=== PATIENT | female | born 1995 | race Caucasian/White ===

== ENCOUNTER → 2017-05-29 11:29 | Outpatient (CLI) | payer BC, SELFPAY ==
[2017-05-29 12:01] LABS: Basophils % 0.1 % (0.1-2.0); Eosinophils # 0.1 K/mm3 (0.0-0.4); Eosinophils % 0.7 % (0.1-12.0); Hematocrit 39.8 % (37.0-47.0); Hemoglobin 12.7 g/dL (12.2-16.2); Lymphocytes # 1.7 K/mm3 (0.7-4.5); Lymphocytes % 26.7 K/mm3 (10-50); Mean Corpuscular HGB Conc 31.8 g/dL (31.8-35.4); Mean Corpuscular Hemoglobin 25.8 pg (27.0-31.2); Mean Corpuscular Volume 81.1 fl (81-99); Mean Platelet Volume 6.9 fl (7.4-10.4); Monocytes # 0.2 K/mm3 (0.1-1.0); Monocytes % 2.8 % (1.7-9.3); Neutrophils # 4.5 K/mm3 (1.8-7.8); Neutrophils % 69.7 % (37.0-80.0); Platelet Count 285 K/mm3 (142-424); Red Blood Count 4.91 M/mm3 (4.20-5.40); Red Cell Distribution Width 12.9 % (11.5-17.5); White Blood Count 6.4 K/mm3 (4.8-10.8)
[2017-05-30 08:21] LABS: HIV Screen 4th Generation wRfx Non Reactive (Non Reactive)
[2017-05-30 17:43] LABS: Hepatitis B Surface Antigen Negative (Negative); Hepatitis C Antibody 0.1 s/co ratio (0.0-0.9); Rapid Plasma Reagin Ab Titer Non Reactive (NonRea<1:1); Rubella Antibodies, IgG 1.19 index (Immune >0.99)
== END ==
PROVIDERS: Visit Provider Nurse Practitioner Obstetrics & Gynecology
DX: Z34.90 Encounter for supervision of normal pregnancy, unspecified, unspecified trimester (principal); Z3A.01 Less than 8 weeks gestation of pregnancy
CPT/HCPCS: 36415; 85025; 86592; 86703; 86762; 86850; 87340; 87380; G0432

== ENCOUNTER → 2017-06-02 13:45 | Outpatient (CLI) | payer BC, SELFPAY ==
--- NOTE | 2017-06-02 13:49 | US_ITS ---
US OB transvaginal HISTORY: Early gestational age evaluation ITS.REASON: US OB- Dates ORDERING PHYSICIAN: Arie Lawson MD PATIENT AGE: 22 years COMPARISON: FINDINGS: An intrauterine gestational sac is present with a pole with a crown-rump length of 6.00cm correlating to gestational age of 12w4d . heart tones are present with an FHR of Heart rate bpm's. Yolk sac is noted. The amnion and chorion have not yet fused. Estimated due date is 12/10/2017 IMPRESSION: Live intrauterine gestation at 12 weeks 4 days with an estimated due date of 12/10/2017.
== END ==
PROVIDERS: Family Provider Family Medicine; PCP Family Medicine; Visit Provider Nurse Practitioner Obstetrics & Gynecology
DX: O26.841 Uterine size-date discrepancy, first trimester (principal)
CPT/HCPCS: 76830

== ENCOUNTER → 2017-07-29 13:05 | Outpatient (CLI) | payer BC, SELFPAY ==
--- NOTE | 2017-07-29 13:08 | US_ITS ---
US OB /maternal detail: INDICATION: ITS.REASON: US OB Complete ORDERING PHYSICIAN: Arie Lawson MD PATIENT AGE: 22 years TECHNIQUE: ultrasound transabdominal scanning. COMPARISON: No previous relevant studies. FINDINGS: Single viable intrauterine gestation. , Cephalic position. Placenta: Anterior placenta grade 1. There is average amount fluid. The cervix appears satisfactory. Closed and measuring or centimeters in length. Complete survey performed and was unremarkable on the submitted images as in PACS. No discrete anomalies identified on survey imaging by technologist. Active fetus. Three-vessel cord with satisfactory umbilical cord insertion. 4- chamber heart noted. Survey of brain & ventricles unremarkable. Face and neck survey unremarkable. Diaphragm and chest views unremarkable. Abdomen: Both kidneys noted and unremarkable. Stomach noted and satisfactory. Spine: Survey of the spine satisfactory with no anomalies identified nor imaged. Both arms and legs noted. Amniotic Fluid: Adequate. Maternal adnexa: No significant findings. Measurements: Average ultrasound age 20w5d. Gestational Age 22w2d. Estimated due date by ultrasound age 1012/11/2017. Estimated weight 365 grams. This is 2nd percentile based on estimated due date BPD = 20w5d OFD = 21w0d HC = 20w1d AC = 20w4d FL = 21w0d Heart Rate = 146 Cerebellum = 21w3d Humerus = 21w3d HC/AC is 1.15 (1.06-1.25). CI is 77% (70-86%). FL/BPD is 71%. FL/AC is 23% (20-24%). IMPRESSION: Single live intrauterine gestation with average ultrasound age of 20 weeks and 5 days. Estimated weight is 365-g which is small for reported gestational age which is 2nd percentile based on estimated due date. Consider follow-up to confirm adequate growth. All parameters correlate. No obvious anomalies. Please see above for detail.
== END ==
PROVIDERS: Family Provider Family Medicine; PCP Family Medicine; Visit Provider Nurse Practitioner Obstetrics & Gynecology
DX: Z36.0 Encounter for antenatal screening for chromosomal anomalies (principal)
CPT/HCPCS: 76811

== ENCOUNTER → 2017-11-11 17:02 | Outpatient (REF) | payer BC, SELFPAY | LOC: LAB 17:02 | PROVIDERS: Visit Provider Nurse Practitioner Obstetrics & Gynecology | DX: Z34.90 Encounter for supervision of normal pregnancy, unspecified, unspecified trimester (principal) | CPT/HCPCS: 86403 ==

== ENCOUNTER → 2017-11-18 10:08 | Outpatient (CLI) | payer BC, SELFPAY ==
--- NOTE | 2017-11-18 | US_ITS ---
US OB biophysical profile, US OB follow up, US SD Ratio umbilcal artery: Indication: ITS.REASON: US OB BPP GROWTH- LGA ORDERING PHYSICIAN: Arie Lawson MD PATIENT AGE: 22 years FINDINGS: There is a single live fetus in cephalic presentation. heart and body motion noted. The following parameters are obtained: Average ultrasound age is 36w6d. Estimated due date by ultrasound is 12/10/2017. Estimated weight is 3043 grams Growth percentile equals 55% BPD: 36w2d OFD: OFD HC: 37w4d AC: 37w1d FL: 36w2d heart rate: 134 bpm. HC/AC: 0.99 (0.92-1.22) Cephalic index: 76% (70-86%) FL/BPD: 79% (71-87%) FL/AC: 21% (20-24%) Amniotic fluid index: 14 cm Qualitative AFV: 2 breathing movements: 2 Gross body movements: 2 Tone: 2 Biophysical profile score: 8/8 Doppler evaluation of the umbilical artery: SD ratio: 2.3 Resistive index: 0.56 No obvious anomalies evident. Placenta: Anterior and grade 2. No previa or abruption Cervix: Appears closed and measures 3.5 cm IMPRESSION: There is a single live fetus which is in cephalic presentation with an average ultrasound age of 36 weeks and 3 days. There has been adequate progression. Submitted weight is 3043 g which is 55 percentile. Biophysical profile is 8 of 8. Amniotic fluid index normal at 14 cm. Unremarkable Doppler evaluation of the umbilical artery Anterior grade 2 placenta
== END ==
PROVIDERS: Family Provider Family Medicine; PCP Family Medicine; Visit Provider Nurse Practitioner Obstetrics & Gynecology
DX: O36.63X0 Maternal care for excessive fetal growth, third trimester, not applicable or unspecified (principal)
CPT/HCPCS: 76816; 76819; 76820

== ENCOUNTER 2017-12-03 05:40 | Inpatient (IN) ==
[2017-12-03 06:37] LABS: Anion Gap 14.1 mEq/L (5-15); Calcium 8.6 mg/dL (8.5-10.1); Potassium 4.1 mmoL/L (3.5-5.1)
[2017-12-03 06:47] LABS: Eosinophils % 0.8 % (0.1-12.0); Hematocrit 34.9 % (37.0-47.0); Hemoglobin 11.5 g/dL (12.2-16.2); Mean Corpuscular HGB Conc 32.8 g/dL (31.8-35.4); Mean Corpuscular Hemoglobin 25.7 pg (27.0-31.2); Mean Corpuscular Volume 78.4 fl (81-99); Mean Platelet Volume 8.2 fl (7.4-10.4); Monocytes % 4.9 % (1.7-9.3); Neutrophils % 65.5 % (37.0-80.0); Platelet Count 210 K/mm3 (142-424); Red Blood Count 4.46 M/mm3 (4.20-5.40); Red Cell Distribution Width 14.6 % (11.5-17.5)
[2017-12-03 06:48] LABS: Basophils % 0.1 % (0.1-2.0); Lymphocytes % 28.7 K/mm3 (10-50); Neutrophils # 4.4 K/mm3 (1.8-7.8)
[2017-12-03 06:49] LABS: Eosinophils # 0.1 K/mm3 (0.0-0.4); Lymphocytes # 1.9 K/mm3 (0.7-4.5); Monocytes # 0.3 K/mm3 (0.1-1.0); White Blood Count 6.8 K/mm3 (4.8-10.8)
--- NOTE | 2017-12-03 08:12 | Operative Note ---
Date of procedure: 12/03/17 Pre-op Diagnosis:: Term , previous section Post-op Diagnosis:: Term , previous section Procedure performed:: Repeat lower segment for section. Surgeon:: Arie Lawson MD Home Administrator(s):: Miesha Thompson [employer]CH[employer]IC:: Other ([place]) Anesthesia: spinal Estimated blood loss (mL): 600 Clinical Note:: Is a 22-year-old 2 para 1 who is 39+ weeks gestational age. She has had a previous section and as a was offered repeat lower segment transverse section at term. Operative findings:: She delivered a liveborn female child at 7:40 AM on the morning of December 03 to be had Apgars of 9 at 1 minute and 9 at 5 minutes. Tubes and ovaries appeared normal. PH was 7.35. Operative note:: She was taken to the operating room where spinal anesthesia was found be adequate. She was prepped and draped in normal sterile fashion in the supine position with a leftward tilt. A Khan catheter was in the bladder. A Pfannenstiel skin incision was made with knife then carried through to the underlying layer of fascia with cautery. The fascia was opened in the midline with cautery and extended laterally using Silveira scissors. Benedict clamps were applied to the superior aspect of the fascial incision which was tented up and the underlying rectus muscles dissected off using cautery. The [place] clamps were then applied to the inferior aspect of the fascial incision which in a similar fashion was tented up and the underlying rectus muscles dissected off using cautery. The rectus muscles were then in the midline, the peritoneum identified, and entered sharply with Metzenbaum scissors. This incision was then extended superiorly and inferiorly with cautery. We had good visualization of the bladder inferiorly. The Kevin device was then placed within the abdominal cavity. The bladder peritoneum was then opened in the midline and extended laterally using Metzenbaum scissors. A bladder flap was created digitally. The Kevin device was then placed within the abdominal cavity. Transverse incision was made through the uterine muscle to the amnion. This incision was then extended laterally using fingers traction. The amnion was entered sharply with knife. There was clear amniotic fluid. The infant's head was then delivered atraumatically. A loose nuchal cord was then reduced. This was followed by the anterior shoulder and the rest of the infant's body atraumatically. The oropharynx and nasopharynx were bulb suctioned. The was then handed off to Dr. Loza who assigned Apgars of 9 at 1 minute and 9 at 5 minutes. We then obtained cord blood as well as cord pH. The pH was 7.35. Using gentle traction on the cord and countertraction on the fundus I was able to easily deliver the placenta intact. It had a normal three-vessel cord. The uterus was then cleared of clots and debris . The uterine incision was then closed using running 0 Vicryl suture in a locked fashion. A second layer of the same suture was used to imbricate the first layer. The bladder peritoneum was then closed using running 2-0 Vicryl suture in a locked fashion. The gutters and cul-de-sac were then cleared of clots and debris . Once again hemostasis was assured. The peritoneum was grasped with Trudi clamps and closed using running 2-0 Vicryl suture. The rectus muscles were then reapproximated using running 0 Vicryl suture. The fascia was closed using running #1 Vicryl suture. The subcutaneous tissues were then irrigated with warm water followed by closure Jennifer's fascia using running 2-0 Monocryl suture. The skin was closed with ana. I then cleaned the skin with Hibiclens. Sterile dressings were applied. She tolerated the procedure well and was taken to the recovery room in excellent condition. All sponges minute and needle counts were correct. Estimate a blood loss was approximately 600 mL. Condition: stable Disposition: PACU Specimens:: Products of conception Complications:: None
--- NOTE | 2017-12-03 08:15 | History & Physical Report ---
OB - H&P: HPI Antepartum - History of Present Illness Chief complaint: Previous section, term History of present illness: She is a 22-year-old 2 para 1 at 39 weeks gestational age. She has had a previous section and as a result of that was offered repeat lower segment transverse section at term. - History of Present Criteria for establishing EDC:: LMP confirmed by 1st trimester US care: good care Ultrasounds: normal 1st trimester US, normal mid trimester US Obstetrical complications: none Medical complications: none - Labs Blood type: O (+) positive Rubella: immune RPR/VDRL: nonreactive GBS status: negative [facility] History I have reviewed the patient's past medical history: Yes Medical History: Reports:: Hypertension Other Medical History: Reports: Thyroid Disease Other Surgeries: Yes: Amputation: No Fractures: No - *Social History Smoking Status: Never smoker Alcohol Intake: never Substance Use Type: denies use *Family Hx:: No significant family history Para: 1 Review of Systems - Review of Systems Review of systems:: pertinent systems reviewed and negative unless documented below Meds Home Medications Medication Instructions Recorded Confirmed Type 1 tab PO QHS 05/29/17 12/03/17 History vitamin,calcium,qjvbqzoc-mdip-pkpfu acid tablet metronidazole 500 mg tablet 500 mg PO BID 10/08/17 12/03/17 History RX: Ferrous Sulfate 325 mg PO ONCE 12/03/17 12/03/17 History Allergies Allergy/AdvReac Type Severity Reaction Status Date / Time No Known Drug Allergies Allergy Unknown Verified 11/26/17 09:08 [NKDA] OB - H&P: Exam - Physical Exam Vital signs: Temp Pulse Resp BP Pulse Ox 98.5 F 118 H 18 124/82 97 12/03/17 06:01 12/03/17 06:01 12/03/17 06:01 12/03/17 06:01 12/03/17 06:01 - Constitutional no acute distress - Routine HEENT Exam Head: Present: normocephalic Eye: Present: EOMI, PERRL ENT: Present: mucous membranes moist - Routine Neck Exam Present: supple, full ROM - Routine Respiratory Exam Absent: accessory muscle use (good air entry bilaterally), respiratory distress, wheezes, crackles - Routine Cardiovascular Exam Present: RRR. Absent: murmur - Routine Abdominal Exam Present: soft, normoactive bowel sounds. Absent: tenderness, distended, guarding - Routine Rectal Exam Patient deferred: visual exam, digital exam - Routine Exam Patient deferred: external exam, groin exam, perineal exam - Routine Extremities Exam Present: full ROM. Absent: cyanosis, edema - Routine Skin Exam Present: intact. Absent: cyanosis - Routine Neurological Exam Present: alert, oriented X3 - Routine Psychiatric Exam Present: normal affect OB - Results - Labs Labs: Short CBC 12/03/17 Range/Units 05:57 WBC 6.8 (4.8-10.8) K/mm3 Hgb 11.5 L (12.2-16.2) g/dL Hct 34.9 L (37.0-47.0) % Plt Count 210 (142-424) K/mm3 [facility] 12/03/17 05:57 Sodium 136 Potassium 4.1 Chloride 104 Carbon Dioxide 22 BUN 8 Creatinine 0.63 Glucose 89 Calcium 8.6 OB - A/P Antepartum (1) Previous section complicating , with delivery Current visit: Yes Status: Acute - Additional Plan Planning to breastfeed?: Yes Plan: other Additional Information:: She is here for a repeat lower segment transverse section at term.
--- NOTE | 2017-12-03 08:18 | Progress Note ---
[facility] Anesthesia Checklist - Patient Identification Patient Identification: Arm Band, Verbal (Name & ) - Structural Data Admitted From: Home Planned Operative Procedure/s: Repeat cesaeran section Consent for Planned Operative Procedure(s) Verified: Yes Verified Documents: Surgical Consent, History and Physical - NPO Status Verified Time NPO: 00:00 - Additional verifications Patient : Yes Anesthesia Reactions: No - Airway Assessment C-Spine Mobility Assessed: Yes TMJ Mobility Assessed: Yes Dentition: Good Dentition - Neurological Assessment Level of Consciousness: Awake Hx Seizures: No Numbness or tingling in extremities: No - Anesthesia Plan Anesthesia Risk discussed: Yes Anesthesia Plan: Verified ASA Class: II Anesthesia Type: Spinal [facility] History I have reviewed the patient's past medical history: Yes Medical History: Reports:: Asthma Other Medical History: Reports: Hypothyroidism, Other (obesity, hx abuptio placenta) Other Surgeries: Yes: Amputation: No Fractures: No - *Social History Smoking Status: Never smoker Alcohol Intake: never Substance Use Type: denies use *Family Hx:: No significant family history Para: 1
--- NOTE | 2017-12-03 08:19 | Progress Note ---
[facility] Anesthesia Record Part I Intake, IV Amount: 500 Estimated blood loss (mL): 600 Urine output (mL): 100 Blood Products used (#): none Blood Pressure: 131/65 SaO2: 96 Pulse Rate: 78 Respiratory Rate: 16 Temperature: 97.3 F Patient is:: Awake, Stable Stable to PACU at:: 08:13
--- NOTE | 2017-12-03 08:20 | Progress Note ---
[place] Anesthesia Record Part II Discharge Time: 08:43 Destination: Obstetric Gynecology Dept PACU nurse assessment reviewed?: Yes Patient Condition:: Good Anesthesia Complications:: None
[2017-12-03 16:21] LABS: Hematocrit 32.4 % (37.0-47.0); Hemoglobin 10.6 g/dL (12.2-16.2)
[2017-12-04 06:15] LABS: Basophils % 0.3 % (0.1-2.0); Eosinophils % 0.4 % (0.1-12.0); Hematocrit 28.9 % (37.0-47.0); Lymphocytes # 1.9 K/mm3 (0.7-4.5); Lymphocytes % 25.3 K/mm3 (10-50); Mean Corpuscular HGB Conc 32.5 g/dL (31.8-35.4); Mean Corpuscular Hemoglobin 25.8 pg (27.0-31.2); Mean Corpuscular Volume 79.4 fl (81-99); Mean Platelet Volume 9.1 fl (7.4-10.4); Monocytes # 0.3 K/mm3 (0.1-1.0); Monocytes % 4.3 % (1.7-9.3); Neutrophils # 5.3 K/mm3 (1.8-7.8); Neutrophils % 69.8 % (37.0-80.0); Platelet Count 179 K/mm3 (142-424); Red Blood Count 3.64 M/mm3 (4.20-5.40); Red Cell Distribution Width 14.6 % (11.5-17.5); White Blood Count 7.6 K/mm3 (4.8-10.8)
[2017-12-04 06:21] LABS: Hemoglobin 9.5 g/dL (12.2-16.2)
[2017-12-04 08:08] VITALS: BP 114/64
--- NOTE | 2017-12-04 12:23 | Progress Note ---
Internal Medicine - PN: Subj *Date: 12/04/17 *Time: 12:22 Interval history: She continues to do well. She is eating and drinking and ambulating. Her lochia is normal. Her incision is clean and dry. Her pain is reasonably well controlled. She is breast-feeding. Exam Vital signs and Labs for Last 24 Hours: Temp Pulse Resp BP Pulse Ox 97.5 F L 87 20 114/64 96 12/04/17 08:00 12/04/17 08:00 12/04/17 08:00 12/04/17 08:00 12/04/17 08:00 Laboratory Results - last 24 hr 12/03/17 16:10: Hgb 10.6 L, Hct 32.4 L 12/04/17 06:13: WBC 7.6, RBC 3.64 L, Hgb 9.5 L D, Hct 28.9 L, MCV 79.4 L, MCH 25.8 L, MCHC 32.5, RDW 14.6, Plt Count 179, MPV 9.1, Neut % (Auto) 69.8, Lymph % (Auto) 25.3, [place] % (Auto) 4.3, Eos % (Auto) 0.4, Baso % (Auto) 0.3, Neut # (Auto) 5.3, Lymph # (Auto) 1.9, [place] # (Auto) 0.3, Eos # (Auto) 0.0, Baso # (Auto) 0.0 I & O for Last 24 hours: Intake & Output 12/02/17 12/03/17 12/04/17 12/05/17 11:59 11:59 11:59 11:59 Intake Total 500 / 500 Output Total 100 / 100 Balance 400 / 400 Weight 286 lb - Constitutional no acute distress Assessment and Plan (1) Previous section complicating , with delivery Current visit: Yes Status: Acute Category: Medical Code(s): O34.219 - Mat ernal care for unspecified type scar from previous delivery - Assessment and plan all Dx Assessment and Plan for all problems:: She continues to do well. We will plan to send her home in 48 hours.
--- NOTE | 2017-12-05 07:39 | Pharmacy Consult Notes ---
[facility] Pharmacy VTE Monitoring - Patient Demographics Admission date: 12/03/17 Report Date: 12/05/17 Time: 07:38 Allergies/Adverse Reactions: Patient Allergies No Known Drug Allergies [NKDA] Allergy (Unknown, Verified 11/26/17 09:08) Height: 1.68 m Weight: 129.727 kg Patient Problems: Current Active Problems Previous section complicating , with delivery (Acute) - VTE Risk Labs: VTE Related Lab Results Hgb 9.5 g/dL (12.2-16.2) L D 12/04/17 06:13 Hct 28.9 % (37.0-47.0) L 12/04/17 06:13 Plt Count 179 K/mm3 (142-424) 12/04/17 06:13 BUN 8 mg/dL (7-18) 12/03/17 05:57 Creatinine 0.63 mg/dL (0.55-1.02) 12/03/17 05:57 Estimated Creat Clear 130 mL/min (0-300) 12/03/17 05:57 - Prophylaxis VTE Prophylaxis Ordered?: Yes Types of VTE Prophylaxis: IPCS Knee High Location of Applied Device: Bilateral Lower Extremeties
--- NOTE | 2017-12-05 10:56 | Progress Note ---
Internal Medicine - PN: Subj *Date: 12/05/17 *Time: 10:56 Interval history: She continues to do well. She is eating and drinking and ambulating. She is breast-feeding. Her lochia is normal. Her pain is reasonably well controlled. Exam Vital signs and Labs for Last 24 Hours: Temp Pulse Resp BP Pulse Ox 97.5 F L 87 20 114/64 96 12/04/17 08:00 12/04/17 08:00 12/04/17 08:00 12/04/17 08:00 12/04/17 08:00 I & O for Last 24 hours: Intake & Output 12/02/17 12/03/17 12/04/17 12/05/17 11:59 11:59 11:59 11:59 Intake Total 500 / 500 Output Total 100 / 100 Balance 400 / 400 Weight 286 lb 286 lb - Constitutional no acute distress Assessment and Plan (1) Previous section complicating , with delivery Current visit: Yes Status: Acute Category: Medical Code(s): O34.219 - Maternal care for unspecified type scar from previous delivery - Assessment and plan all Dx Assessment and Plan for all problems:: She continues to do well. We will plan to send her home tomorrow.
--- NOTE | 2017-12-05 11:01 | Discharge Summary ---
General - General Admission date:: 12/03/17 Discharge date: 12/06/17 HPI HPI: She is a 22-year-old 2 now para 2 who is 39 weeks gestational age. She has had a previous section and as result of that was offered repeat lower segment transverse section at term. Hospital Course Hospital Course: On December 03, 2017 she underwent a repeat lower segment transverse section. She delivered a liveborn female child at 7:41 AM on the morning of January 03, 2018. The baby weighed 8 pounds 15 ounces and was 20 inches long. She had Apgars of 9 at 1 minute and 9 at 5 minutes. Patient has done well and has remained afebrile throughout her hospitalization. She is eating and drinking and ambulating. She is breast- feeding. She has O+ blood, she is rubella immune and was group B Streptococcus negative. Her agriculture technician Dr. Loza. She is discharged home to follow-up with me in approximately 2 weeks time. She has had her ana removed and Steri-Strips applied. She will continue with her vitamins and iron. She will take ibuprofen at home. She was given a prescription for hydromorphone. 2 mg #30 to take every 4 hours as needed for pain. Her condition on discharge is stable. Rhogam Administration: Not Indicated Objective Vital signs: Temp Pulse Resp BP Pulse Ox 97.5 F L 87 20 114/64 96 12/04/17 08:00 12/04/17 08:00 12/04/17 08:00 12/04/17 08:00 12/04/17 08:00 no acute distress DS: Diagnosis - Discharge Diagnosis (1) Previous section complicating , with delivery Status: Acute Discharge Plan - Patient Discharge Instructions ACTIVITY: No heavy lifting DIET: continue same diet Patient Instructions: Depression, , Hemorrhage, [facility] Post Discharge Instructions - Follow up Plan Follow up with: Arie Lawson MD [Staff Physician] - 12/17/17 1:45 pm Disposition: Home, Self-Usp Medications: Home Medications Medication Instructions Recorded Confirmed Type 1 tab PO QHS 05/29/17 12/03/17 History vitamin,calcium,dropoyyr-fvxr-urhcl acid tablet Prescriptions/Medication Reconciliation: New Hydromorphone HCl [Hydromorphone 2mg Tab] 2 mg PO Q4HP PRN #30 tab PRN Reason: Severe Pain Continue vitamin,calcium,lanrkhuw-odcc-jjfhg acid tablet 1 tab PO QHS
--- NOTE | 2017-12-06 15:12 | Progress Note ---
Internal Medicine - PN: Subj *Date: 12/06/17 *Time: 15:09 Interval history: POD #3 elective repeat CS No new complaints Acute on chronic anemia, asymptomatic Hgb 11.5 at admission and 9.5 at discharge Planned discharge for today Exam Vital signs and Labs for Last 24 Hours: Temp Pulse Resp BP Pulse Ox 97.5 F L 87 20 114/64 96 12/04/17 08:00 12/04/17 08:00 12/04/17 08:00 12/04/17 08:00 12/04/17 08:00 I & O for Last 24 hours: Intake & Output 12/04/17 12/05/17 12/06/17 12/07/17 11:59 11:59 11:59 11:59 Weight 286 lb - Constitutional no acute distress - *Routine Abdominal Exam Present: soft. Absent: tenderness, distended, guarding - *Routine Extremities Exam Absent: edema - *Routine Skin Exam Present: wounds (dry/intact. ana removed and steri-strips applied.) - *Routine Neurological Exam Present: alert, oriented X3. Absent: altered mental status - Routine Psychiatric Exam Present: normal affect. Absent: depressed, anxious Assessment and Plan (1) Previous section complicating , with delivery Current visit: Yes Status: Acute Category: Medical Code(s): O34.219 - Maternal care for unspecified type scar from previous delivery (2) delivery delivered Current visit: Yes Status: Acute Category: Medical Code(s): O82 - Encounter for delivery without indication (3) Anemia associated with acute blood loss Current visit: Yes Status: Acute Category: Medical Code(s): D62 - Acute posthemorrhagic anemia - Assessment and plan all Dx Assessment and Plan for all problems:: Discharge home per established plan F/u 1 wk office for incision check
== END 2017-12-06 15:30 | disposition home or self-care (01) ==
LOC: OB 05:40
PROVIDERS: ADMIT Nurse Practitioner Obstetrics & Gynecology; ATTEND Nurse Practitioner Obstetrics & Gynecology
CPT/HCPCS: 36415; 59025; 80048; 81001; 82800; 85014; 85018; 85025; 86850; 93005; J2405

== ENCOUNTER → 2019-04-12 10:43 | Outpatient (CLI) | payer BC, SELFPAY ==
[2019-04-13 11:51] LABS: HIV Screen 4th Generation wRfx Non Reactive (Non Reactive); Rapid Plasma Reagin Ab Titer Non Reactive (NonRea<1:1)
== END ==
PROVIDERS: Visit Provider Nurse Practitioner Obstetrics & Gynecology
DX: Z11.3 Encounter for screening for infections with a predominantly sexual mode of transmission (principal)
CPT/HCPCS: 36415; 86592; 86703; G0432

== ENCOUNTER → 2020-05-24 09:09 | Outpatient (CLI) | payer BC, SELFPAY ==
--- NOTE | 2020-05-24 09:09 | US_ITS ---
PROCEDURE: US TRANSVAGINAL CLINICAL INDICATION: Pelvic pain and ovarian pain COMPARISON: US OBTV US OB transvaginal from 06/02/2017 FINDINGS: UTERUS: 8cm x 6cmx 5cm with a combined endometrial thickness of 3.9mm LEFT OVARY: 2tyb2csl8.1cm with a volume of 9.8ml. RIGHT OVARY: 5lys0etc0ey with a volume of 9.1ml. IMPRESSION: Negative pelvic ultrasound Dictated by: Dameon Nance MD 05/24/2020 17:50 Dameon Nance MD in [facility] 05/24/2020 17:50
== END ==
PROVIDERS: PCP Family Medicine; Visit Provider Nurse Practitioner Obstetrics & Gynecology
DX: R10.2 Pelvic and perineal pain (principal); N94.89 Other specified conditions associated with female genital organs and menstrual cycle
CPT/HCPCS: 76830

== ENCOUNTER 2023-06-23 12:59 | Outpatient (CLI) | payer BC, SELFPAY ==
[2023-06-23 15:54] LABS: HCG,Quantitative 14997 mIU/ml (0-5.42)
[2023-06-24 11:23] LABS: Progesterone 5.6 ng/mL (.)
== END 2023-06-23 23:59 | disposition home or self-care (01) ==
LOC: LAB 13:03
PROVIDERS: Visit Provider Nurse Practitioner Obstetrics & Gynecology
DX: Z32.00 Encounter for pregnancy test, result unknown (principal)
CPT/HCPCS: 36415; 84144; 84702

== ENCOUNTER 2023-07-03 13:51 | Outpatient (CLI) | payer BC, SELFPAY ==
--- NOTE | 2023-07-03 13:56 | US_ITS ---
PROCEDURE: US OB <= 14 WEEKS FETUS CLINICAL INDICATION: viabilty and for dates COMPARISON: No exams were available for comparison FINDINGS: Transvaginal sonographic images of the pelvis were obtained. From her last menstrual period she is 9weeks 0 days. An intrauterine gestational sac is present with a pole with a crown-rump length of 1.22cm This correlates to a gestational age of 7weeks 3days. heart tones are present with an FHR of 160bpm. Yolk sac is noted. The yolk sac measures 4.9mm. The right ovary is seen and appears normal. The left ovary is seen and appears normal. There is no fluid in the cul-de-sac. IMPRESSION: 1. Viable fetus within the uterine cavity. 2. Fetus is currently 7 weeks 3 days and we will change her dates. Her revised MAMTA will be 02/16/2024. 3. Both ovaries are seen and appear normal. 4. No fluid in the cul-de-sac. Dictated by: Arie Lawson MD 07/04/2023 09:56 Arie Lawson MD in [facility] 07/04/2023 09:56
== END 2023-07-03 23:59 | disposition home or self-care (01) ==
LOC: RAD 13:52
PROVIDERS: Visit Provider Nurse Practitioner Obstetrics & Gynecology
DX: O26.891 Other specified pregnancy related conditions, first trimester (principal); Z3A.01 Less than 8 weeks gestation of pregnancy
CPT/HCPCS: 76801

== ENCOUNTER 2023-07-16 16:35 | Outpatient (CLI) | payer BC, SELFPAY ==
[2023-07-16 17:15] LABS: Basophils % 0.4 % (0.1-2.0); Eosinophils % 0.5 % (0.1-12.0); Hematocrit 41.7 % (37.0-47.0); Hemoglobin 13.5 g/dL (12.2-16.2); Lymphocytes # 1.8 K/mm3 (0.7-4.5); Lymphocytes % 25.2 % (10-50); Mean Corpuscular HGB Conc 32.4 g/dL (31.8-35.4); Mean Corpuscular Hemoglobin 27.5 pg (27.0-31.2); Mean Corpuscular Volume 84.9 fl (81-99); Mean Platelet Volume 7.6 fl (7.4-10.4); Monocytes # 0.3 K/mm3 (0.1-1.0); Monocytes % 3.9 % (1.7-9.3); Neutrophils # 4.9 K/mm3 (1.8-7.8); Platelet Count 301 K/mm3 (142-424); Red Blood Count 4.91 M/mm3 (4.20-5.40); Red Cell Distribution Width 13.4 % (11.5-17.5); White Blood Count 6.9 K/mm3 (4.8-10.8)
[2023-07-18 11:35] LABS: HCV Ab Non Reactive (Non Reactive); HIV Screen 4th Generation wRfx Non Reactive (Non Reactive); Hepatitis B Surface Antigen Negative (Negative); Rapid Plasma Reagin Ab Titer Non Reactive titer (NonRea<1:1); Rubella Antibodies, IgG 3.23 index (Immune >0.99)
== END 2023-07-16 23:59 | disposition home or self-care (01) ==
LOC: LAB 16:36
PROVIDERS: Visit Provider Nurse Practitioner Obstetrics & Gynecology
DX: O26.891 Other specified pregnancy related conditions, first trimester (principal); Z3A.09 9 weeks gestation of pregnancy
CPT/HCPCS: 36415; 85025; 86593; 86703; 86762; 86850; 87086; 87340; G0432

== ENCOUNTER 2023-10-03 12:37 | Outpatient (CLI) | payer BC, SELFPAY ==
--- NOTE | 2023-10-03 12:38 | US_ITS ---
PROCEDURE: US OB /MATERNAL DETAIL CLINICAL INDICATION: 20 wk + Anatomy Scan COMPARISON: US US OB <= 14 WEEKS FETUS from 07/03/2023 FINDINGS: Transabdominal sonographic images of the pelvis were obtained. From her established due date she is 20 weeks 4 days. Single viable intrauterine gestation. Cephalic position. Placenta: Anteriorplacenta grade 1. There is a small placental Lopez seen. There is an average amount of fluid. The cervix appears satisfactory. Closed and measuring 5.18 cm in length. Complete survey performed and was unremarkable on the submitted images as in PACS. No discrete anomalies identified on survey imaging by technologist. Difficult exam secondary to maternal body habitus. Active fetus. Three-vessel cord with satisfactory umbilical cord insertion. 4- chamber heart noted. Situs, aortic arch, LVOT, RVOT, three-vessel view appear normal. Survey of brain & ventricles Unremarkable. Cerebellum, thalamus, choroid plexus, cisterna magna appear normal. Face and neck survey unremarkable. Profile, nasion, lips and nose appeared normal. Diaphragm and chest views unremarkable. Abdomen: Both kidneys noted but not well visualized.. Stomach and bladder noted and satisfactory. Spine: Survey of the spine satisfactory with no anomalies identified nor imaged. Cervical, thoracic, lower spine appear normal. Not well visualized. Both arms and legs noted. Amniotic Fluid: Adequate. MVP 3.58 cm Measurements: Average ultrasound age 21weeks 3days. Estimated due date by ultrasound age 1202/10/2024. Estimated weight 430g BPD = 21weeks 1day HC = 21weeks 1day AC = 22weeks 4days FL = 20weeks 3days Growth Percentile= 91 Heart Rate = 144bpm Cerebellum = 19weeks 6days Humerus = 21weeks 2days HC/AC is 1.07 FL/BPD is 0.67 FL/AC is 0.19 IMPRESSION: 1. Viable fetus in the cephalic presentation with an anterior placenta grade 1. There is a small placental Lopez. 2. Fluid is within normal limits with an MVP 3.58 cm. 3. Anatomical scan appears normal. 4. The patient needs to return in 4 weeks for repeat views of the kidneys and spine. Somewhat difficult incomplete examination. 5. Biometry is consistent with the dates. Dictated by: Arie Lawson MD 10/03/2023 14:32 Arie Lawson MD in [facility] 10/03/2023 14:32
== END 2023-10-03 23:59 | disposition home or self-care (01) ==
LOC: RAD 12:38
PROVIDERS: PCP Nurse Practitioner Obstetrics & Gynecology; Visit Provider Nurse Practitioner Obstetrics & Gynecology
DX: Z36.3 Encounter for antenatal screening for malformations (principal); Z3A.20 20 weeks gestation of pregnancy
CPT/HCPCS: 76811

== ENCOUNTER 2023-12-08 08:26 | Outpatient (CLI) | payer BC, SELFPAY ==
--- NOTE | 2023-12-08 08:29 | US_ITS ---
PROCEDURE: US OB FOLLOW UP CLINICAL INDICATION: f/u anatomy Scan COMPARISON: US US OB <= 14 WEEKS FETUS from 07/03/2023 US US OB /MATERNAL DETAIL from 10/03/2023 FINDINGS: Transabdominal sonographic images of the pelvis were obtained. The following parameters are obtained: From her established due date she is 30weeks 0 days Viable fetus in the breech presentation with an anterior placenta grade 2. Placental lakes are seen. The cervix measures 3.3 cm heart rate: 140bpm bpm. Amniotic fluid appears normal No obvious anomalies evident. profile seen, stomach, bladder, kidneys, three-vessel cord, four chamber heart appear normal. spine: Cervical spine is not seen well due to position. Lower spine appears normal. kidneys are seen and appear normal. IMPRESSION: 1. Viable fetus in the breech presentation with an anterior placenta grade 2. 2. The fluid appears to be within normal limits. 3. Limited anatomical scan appears normal. 4. spine appears normal but the cervical spine was not visualized well secondary to position. Lower spine appears normal. 5. kidneys are seen today and appear normal. 6. Suggest repeat scan at 36 weeks 2 confirm position as well as to look at the upper spine again. Dictated by: Arie Lawson MD 12/08/2023 11:28 Arie Lawson MD in [place] 12/08/2023 11:28
[2023-12-08 11:17] LABS: Basophils % 0.3 % (0.1-2.0); Eosinophils % 0.5 % (0.1-12.0); Hematocrit 33.5 % (37.0-47.0); Hemoglobin 11.3 g/dL (12.2-16.2); Lymphocytes # 1.4 K/mm3 (0.7-4.5); Lymphocytes % 19.4 % (10-50); Mean Corpuscular HGB Conc 33.8 g/dL (31.8-35.4); Mean Corpuscular Hemoglobin 27.9 pg (27.0-31.2); Mean Corpuscular Volume 82.5 fl (81-99); Mean Platelet Volume 8.2 fl (7.4-10.4); Monocytes # 0.2 K/mm3 (0.1-1.0); Monocytes % 3.5 % (1.7-9.3); Neutrophils # 5.3 K/mm3 (1.8-7.8); Neutrophils % 76.4 % (37.0-80.0); Platelet Count 208 K/mm3 (142-424); Red Blood Count 4.06 M/mm3 (4.20-5.40); Red Cell Distribution Width 15.1 % (11.5-17.5); White Blood Count 6.9 K/mm3 (4.8-10.8)
[2023-12-08 12:17] LABS: Glucose,Fasting 86 mg/dl (74-100)
[2023-12-08 13:03] LABS: Glucose 1 Hour 156 mg/dL (74-100)
[2023-12-09 11:15] LABS: Rapid Plasma Reagin Ab Titer Non Reactive titer (NonRea<1:1)
== END 2023-12-08 23:59 | disposition home or self-care (01) ==
PROVIDERS: Visit Provider Nurse Practitioner Obstetrics & Gynecology
DX: Z36.2 Encounter for other antenatal screening follow-up (principal); Z34.93 Encounter for supervision of normal pregnancy, unspecified, third trimester; Z3A.30 30 weeks gestation of pregnancy
CPT/HCPCS: 36415; 76816; 82951; 85025; 86593

== ENCOUNTER 2023-12-08 14:55 | Outpatient (CLI) | payer BC, SELFPAY | END 2023-12-08 23:59 | disposition home or self-care (01) | LOC: LAB 14:56 | PROVIDERS: Visit Provider Nurse Practitioner Obstetrics & Gynecology | DX: R00.2 Palpitations (principal); R94.31 Abnormal electrocardiogram [ECG] [EKG]; R00.0 Tachycardia, unspecified; R06.09 Other forms of dyspnea | CPT/HCPCS: 93270 ==

== ENCOUNTER 2024-01-06 11:12 | Outpatient (CLI) | payer BC, SELFPAY ==
[2024-01-06 12:06] LABS: Glucose,Fasting 77 mg/dl (74-100)
[2024-01-06 13:34] LABS: Glucose 1 Hour 115 mg/dL (74-100)
[2024-01-06 13:56] LABS: Glucose 2 Hour 142 mg/dL (74-100)
[2024-01-06 15:07] LABS: Glucose 3 Hour 129 mg/dL (74-100)
[2024-01-06 16:24] LABS: Basophils % 0.3 % (0.1-2.0); Eosinophils # 0.1 K/mm3 (0.0-0.4); Eosinophils % 0.7 % (0.1-12.0); Hemoglobin 11.2 g/dL (12.2-16.2); Lymphocytes # 1.5 K/mm3 (0.7-4.5); Lymphocytes % 23.1 % (10-50); Mean Corpuscular HGB Conc 32.9 g/dL (31.8-35.4); Mean Corpuscular Hemoglobin 26.1 pg (27.0-31.2); Mean Corpuscular Volume 79.1 fl (81-99); Mean Platelet Volume 9.1 fl (7.4-10.4); Monocytes # 0.4 K/mm3 (0.1-1.0); Neutrophils # 4.7 K/mm3 (1.8-7.8); Neutrophils % 69.9 % (37.0-80.0); Platelet Count 216 K/mm3 (142-424); Red Blood Count 4.29 M/mm3 (4.20-5.40); Red Cell Distribution Width 14.6 % (11.5-17.5); White Blood Count 6.7 K/mm3 (4.8-10.8)
[2024-01-06 17:05] LABS: Alanine Aminotransferase 19 U/L (12-78); Albumin Level 3.3 g/dl (3.5-5.0); Alkaline Phosphatase 213 U/L (38-126); Anion Gap 9.6 mEq/L (5-15); Aspartate Amino Transferase 31 U/L (14-36); Bilirubin,Direct 0.4 mg/dl (0.0-0.4); Bilirubin,Indirect 0.2 mg/dL (0.0-0.9); Bilirubin,Total 0.6 mg/dl (0.2-1.3); Bilirubin,Unconjugated 0.1 mg/dL (0.0-1.1); Blood Urea Nitrogen 4 mg/dl (7-17); Calcium 8.7 mg/dl (8.4-10.2); Carbon Dioxide 21 mmol/L (22.0-30.0); Chloride 109 mmol/L (98-107); Estimated Glomerular Filt Rate 118 ml/min (>60); GFR (African American) 143 ML/MIN (>60); Glucose 115 mg/dl (74-100); HDL Cholesterol 35 mg/dl (40-60); Potassium 3.6 mmoL/L (3.5-5.1); Sodium 136 mmol/L (136-145); Total Protein,Serum 6.4 g/dl (6.3-8.2); Triglycerides 312 mg/dl (30-150); VLDL Cholesterol 62 mg/dL (0-40)
[2024-01-06 17:06] LABS: Chol/HDL Ratio 9.3 (1-3.5)
[2024-01-06 17:13] LABS: Cholesterol 404 mg/dl (140-200)
[2024-01-06 17:24] LABS: Free T4 (Free Thyroxine) 0.94 ng/dl (0.78-2.19)
[2024-01-06 17:35] LABS: Thyroid Stimulating Hormone 1.39 uIU/mL (0.465-4.68)
[2024-01-06 17:43] LABS: Direct LDL Cholesterol 295.16 mg/dL (100-129)
[2024-01-06 17:50] LABS: Iron 58 ug/dL (37-170)
[2024-01-06 17:59] LABS: Total Iron Binding Capacity 641 ug/dL (265-497)
[2024-01-06 18:13] LABS: Folate > 20.00 ng/mL
[2024-01-06 18:26] LABS: Ferritin 10.6 ng/ml (6.24-137)
== END 2024-01-06 23:59 | disposition home or self-care (01) ==
PROVIDERS: Internal Medicine; Visit Provider Nurse Practitioner Obstetrics & Gynecology
DX: Z34.90 Encounter for supervision of normal pregnancy, unspecified, unspecified trimester (principal); R00.2 Palpitations; R94.31 Abnormal electrocardiogram [ECG] [EKG]; R00.0 Tachycardia, unspecified; R06.09 Other forms of dyspnea
CPT/HCPCS: 36415; 80048; 80061; 80076; 82728; 82746; 82951; 83540; 83550; 84439; 84443; 85025

== ENCOUNTER 2024-01-19 14:12 | Outpatient (CLI) | payer BC, SELFPAY ==
--- NOTE | 2024-01-19 14:13 | US_ITS ---
PROCEDURE: US OB BIOPHYSICAL PROFILE CLINICAL INDICATION: LGA COMPARISON: US US OB <= 14 WEEKS FETUS from 07/03/2023 US US OB /MATERNAL DETAIL from 10/03/2023 US US OB FOLLOW UP from 12/08/2023 FINDINGS: Transabdominal sonographic images of the uterus were obtained. From her established due date she is 36weeks 0 days. The following parameters are obtained: Viable Fetus in the cephalic presentation with and anterior placenta grade 3. Two placental lakes are seen Average ultrasound age is 37weeks 5days Estimated weight 3,549g, 7lb 13oz Cervical length is 4.0 cm Measurements: heart Rate = 147bpm BPD = 36weeks 6days, 79 percentile HC = 38weeks 4days, 80 percentile AC = 40weeks 4days, >98 percentile FL = 34weeks 5days, 14 percentile HC/AC is 0.92 FL/BPD is 0.74 FL/AC is 0.18 >98 percentile Amniotic fluid index: 20.34cm, MVP 6.76 cm Qualitative AFV:2 Breathing movements: 2 Gross Body Movements: 2 Tone: 2 Biophysical profile score: 8 No obvious anomalies evident.Kidneys, profile, stomach, bladder, four-chamber heart, three-vessel cord appear normal. IMPRESSION: 1. Viable fetus in the cephalic presentation with an anterior placenta grade 3. 2. The fluid is within normal limits with an amniotic fluid index of 20.24cm, MVP 6.76 3. Biophysical profile 8/8 with good breathing and movement seen. 4. Good growth with the fetus large for gestational age greater than 98th percentile. Dictated by: Arie Lawson MD 01/20/2024 12:40 Arie Lawson MD in [place] 01/20/2024 12:40
== END 2024-01-19 23:59 | disposition home or self-care (01) ==
LOC: RAD 14:13
PROVIDERS: PCP Nurse Practitioner Obstetrics & Gynecology; Visit Provider Nurse Practitioner Obstetrics & Gynecology
DX: O36.63X0 Maternal care for excessive fetal growth, third trimester, not applicable or unspecified (principal); Z3A.36 36 weeks gestation of pregnancy
CPT/HCPCS: 76816; 76819

== ENCOUNTER 2024-01-26 07:59 | Outpatient (CLI) | payer BC, SELFPAY ==
--- NOTE | 2024-01-26 08:02 | CT_ITS ---
FINAL REPORT TECHNIQUE: Then section axial CT images of the chest were obtained with contrast. Three-D reformatted images were also obtained.This study was performed with techniques to keep radiation doses as low as reasonably achievable (ALARA). Individualized dose reduction techniques using automated exposure control or adjustment of mA and/or kV according to the patient''s size were employed. CLINICAL HISTORY: dyspnea,tachycardia FINDINGS: Artifact obscures some of the detail. There is no evidence of pulmonary embolism. There is no evidence of thoracic aortic aneurysm or dissection. There is no evidence of mediastinal or hilar mass or adenopathy. There is no evidence of pulmonary mass or suspicious nodule. No localized inflammatory process is seen within the lungs. Limited images of the upper abdomen are unremarkable. IMPRESSION: No evidence of pulmonary embolism. No mass or localized inflammatory process. Reviewed, Interpreted and Dictated by Kei Montiel III, MD Transcribed by Devorah Judge Authenticated and [facility]
--- NOTE | 2024-01-26 08:02 | CA_ITS ---
APPROVED REPORT EXAM: Comprehensive 2D, Doppler, and color-flow Echocardiogram Assistant Infant Toddler Teacher: Lizett Lopez RT(R) Ht: 5 ft 6 in Wt: 259lbs BSA: 2.23 BP: 125/77 mmHg Indications: SOA, tachycardia, abn EKG, 34 weeks , HTN with 2D Dimensions LVEF (Perez's) 49.10 % F: 54 - 74 LV Volume 134.70 mL F: 46 - 106 LV Volume Index 60.4 mL/m2 F: 29 - 61 LA Volume 38.80 mL LA Volume Index 17.40 mL/m2 (M/F) 16-34 EF AP4 53.40 % EF AP2 45.6 % EF BP 49.1 % GL Strain -21.2 % M-Mode Dimensions RVDd 3.11 cm (0.9-2.6) LA Diam 2.44 cm (1.9-4.0) LVDd 5.32 cm (3.5-5.7) LVDs 3.93 cm (3.5-5.7) IVSd 0.82 cm (0.6-1.1) PWd 0.68 cm (0.6-1.1) EF (Teich) 50.80% FS 26.10% EDV (Teich) 136.50 mL ESV (Teich) 67.10 mL Tricuspid Valve TR P. Velocity 260.00 cm/s RAP Estimate 10.00 mmHg RVSP 37.00 mmHg Left Ventricle The left ventricle is normal size. The left ventricular systolic function is normal. The left ventricular ejection fraction is within the normal range. There is normal left ventricular wall thickness. There is normal LV segmental wall motion. Diastolic function is indeterminate. LVEF is 60%. Right Ventricle The right ventricle is normal size. The right ventricular systolic function is normal. Atria Left atrium is mildly dilated. The right atrium size is normal. There is no Doppler evidence of interatrial shunt. Aortic Valve The aortic valve opens well. There is no aortic valvular stenosis. No aortic regurgitation is present. Mitral Valve There is possibly bileaflet mitral valve prolapse present. No evidence of mitral valve stenosis. Moderate mitral regurgitation. The MR jet is eccentric and posteriorly directed. The severity of MR may be underestimated due to eccentric jet. Tricuspid Valve Tricuspid valve is grossly normal in structure and function. Mild to moderate tricuspid regurgitation. RVSP is 30-35 mmHg. Pulmonic Valve The pulmonary valve is normal in structure. Trace pulmonic regurgitation. Great Vessels The aortic root is normal in size. The ascending aorta is normal in size. IVC is normal in size and collapses >50% with inspiration. Pericardium There is no pericardial effusion. Other Information Study Quality: Fair Conclusion Normal biventricular systolic function. Mild LA dilation. There is possibly bileaflet mitral valve prolapse present. Moderate mitral regurgitation. The MR jet is eccentric and posteriorly directed. The severity of MR may be underestimated due to eccentric jet. Mild to moderate tricuspid regurgitation. RVSP is 30-35 mmHg. In the setting of significant MR, further evaluation of MR severity and mechanism with NACHO is suggested, if clinically feasible and indicated. Electronically signed by : Jackelin Eagle MD 02/01/2024 16:54:46
[2024-01-26] MEDS: IOPAMIDOL-370 (76%);100ML BOTTLE 80 ML IV (08:43)
[2024-01-26] MEDS: SODIUM CHLORIDE 0.9% 10ML SYR (RAD ONLY) 10 ML IV (08:43)
[2024-01-26] MEDS: 0.9 % SODIUM CHLORIDE 50 ML VIAL IV (08:43)
--- NOTE | 2024-01-26 12:35 | US_ITS ---
PROCEDURE: US OB BIOPHYSICAL PROFILE CLINICAL INDICATION: Hypertension in COMPARISON: US US OB <= 14 WEEKS FETUS from 07/03/2023 US US OB /MATERNAL DETAIL from 10/03/2023 US US OB FOLLOW UP from 12/08/2023 US US OB BIOPHYSICAL PROFILE from 01/19/2024 FINDINGS: Transabdominal sonographic images of the uterus were obtained. From her established due date she is 37weeks 0 days. The following parameters are obtained: Viable Fetus in the breech presentation with an anterior placenta grade 3. Measurements: heart Rate = 167bpm Amniotic fluid index: 16.98cm, MVP 5.54 cm Qualitative AFV:2 Breathing movements: 2 Gross Body Movements: 2 Tone: 2 Biophysical profile score: 8 No obvious anomalies evident.Kidneys, 4 chamber heart ,three-vessel cord appear normal. IMPRESSION: 1. Viable fetus in the breech presentation with an anterior placenta grade 3. 2. The fluid is within normal limits with an amniotic fluid index 16.98, MVP 5.54cm. 3. Biophysical profile 09/24 with good breathing movement and movement seen. 4. Limited anatomical scan appears normal. Dictated by: Arie Lawson MD 01/27/2024 10:00 Arie Lawson MD in [place] 01/27/2024 10:00
== END 2024-01-26 23:59 | disposition home or self-care (01) ==
PROVIDERS: PCP Nurse Practitioner Obstetrics & Gynecology; Visit Provider Internal Medicine
DX: R00.2 Palpitations (principal); R94.31 Abnormal electrocardiogram [ECG] [EKG]; R00.0 Tachycardia, unspecified; R06.09 Other forms of dyspnea
CPT/HCPCS: 71275; 76819; 93306; Q9967

== ENCOUNTER 2024-01-30 13:54 | Outpatient (CLI) | payer BC, SELFPAY ==
--- NOTE | 2024-01-30 14:02 | US_ITS ---
PROCEDURE: US OB BIOPHYSICAL PROFILE CLINICAL INDICATION: Hypertension in COMPARISON: US US OB <= 14 WEEKS FETUS from 07/03/2023 US US OB /MATERNAL DETAIL from 10/03/2023 US OB FOLLOW UP from 12/08/2023 US OB BIOPHYSICAL PROFILE from 01/19/2024 US OB BIOPHYSICAL PROFILE from 01/26/2024 FINDINGS: Transabdominal sonographic images of the uterus were obtained. From her established due date she is 37weeks 3days. The following parameters are obtained: Viable Fetus in the breech presentation with and anterior placenta grade 3. Average ultrasound age is 37weeks 3days Estimated weight 3,540g, 7 LB 13 oz The cervix measures 3.03 cm. Measurements: heart Rate = 149bpm BPD = 34weeks 1day, 2 percentile HC = 37weeks 0days, 17 percentile AC = 40weeks 4days, >98 percentile FL = 37weeks 5days, 57 percentile HC/AC is 0.89 FL/BPD is 0.87 FL/AC is 0.2 86 percentile Amniotic fluid index: 10.47cm MVP 6.01 cm Qualitative AFV:2 Breathing movements: 2 Gross Body Movements: 2 Tone: 2 Biophysical profile score: 8 No obvious anomalies evident.Kidneys, Bladder, stomach, kidneys, four-chamber heart, three-vessel cord appear normal. IMPRESSION: 1. Viable fetus in the breech presentation with an anterior placenta grade 3. 2. The fluid is within normal limits with an amniotic fluid index 10.47 cm, MVP 6.01 cm. 3. Biophysical profile is 8 out of 8 with good breathing movement and movement seen. 4. There has been good interval growth with the fetus currently 86 percentile. The abdominal Circumference is greater than 98 percentile and 3 weeks ahead. Dictated by: Arie Lawson MD 01/31/2024 01:32 Arie Lawson MD in [place] 01/31/2024 01:32
== END 2024-01-30 23:59 | disposition home or self-care (01) ==
LOC: RAD 13:55
PROVIDERS: Visit Provider Obstetrics & Gynecology
DX: O13.3 Gestational [pregnancy-induced] hypertension without significant proteinuria, third trimester (principal); O26.86 Pruritic urticarial papules and plaques of pregnancy (PUPPP); O99.213 Obesity complicating pregnancy, third trimester; Z3A.37 37 weeks gestation of pregnancy
CPT/HCPCS: 76816; 76819

== ENCOUNTER 2024-02-09 05:04 | Inpatient (IN) | payer BC, SELFPAY ==
[2024-02-09] VITALS (7 sets, daily range): BP systolic 114–119; BP diastolic 59–70; PULSE 63–93; RESP 18–21; TEMP 36.4–37; O2SAT 98–100; BMI 43.2; BMI 46.1
[2024-02-09] MEDS: LACTATED RINGERS 1000ML 1,000 ML 500 ML IV (05:30)
[2024-02-09 05:39] LABS: Microscopic, Urine URINE MICROSCOPIC (MICROSCOPIC)
[2024-02-09 05:41] LABS: Hematocrit 30.2 % (37.0-47.0); Hemoglobin 9.6 g/dL (12.2-16.2); Mean Corpuscular Volume 76.5 fl (81-99); Red Blood Count 3.95 M/mm3 (4.20-5.40); White Blood Count 6.8 K/mm3 (4.8-10.8)
[2024-02-09 05:42] LABS: Lymphocytes % 24.7 % (10-50); Mean Corpuscular HGB Conc 31.8 g/dL (31.8-35.4); Mean Corpuscular Hemoglobin 24.3 pg (27.0-31.2); Mean Platelet Volume 10.7 fl (7.4-10.4); Monocytes % 3.5 % (1.7-9.3); Neutrophils % 69.8 % (37.0-80.0); Platelet Count 197 K/mm3 (142-424); Red Cell Distribution Width 13.9 % (11.5-17.5)
[2024-02-09 05:43] LABS: Appearance,Urine CLEAR (Clear); Basophils % 0.4 % (0.1-2.0); Bilirubin,Urine Negative (Negative); Blood, Urine 1+ (Negative); Color,Urine YELLOW (Yellow); Eosinophils # 0.1 K/mm3 (0.0-0.4); Eosinophils % 0.9 % (0.1-12.0); Glucose,Urine (UA) Negative (Negative); Ketones,Urine Negative (Negative); Leukocyte Esterase,Urine TRACE (Negative); Lymphocytes # 1.7 K/mm3 (0.7-4.5); Monocytes # 0.2 K/mm3 (0.1-1.0); Neutrophils # 4.7 K/mm3 (1.8-7.8); Nitrate,Urine Negative (Negative); Protein,Urine Negative (Negative); Urobilinogen,Urine 0.2 EU/dl (0.2)
[2024-02-09 05:46] LABS: Chloride 110 mmol/L (98-107); Potassium 3.8 mmoL/L (3.5-5.1); Sodium 133 mmol/L (136-145)
[2024-02-09 05:49] LABS: Anion Gap 6.8 mEq/L (5-15); Blood Urea Nitrogen 8 mg/dl (7-17); Calcium 8.9 mg/dl (8.4-10.2); Carbon Dioxide 20 mmol/L (22.0-30.0); Creatinine Clearance Estimated 96 mL/min (50-200); Estimated Glomerular Filt Rate 84 ml/min (>60); GFR (African American) 102 ML/MIN (>60); Glucose 88 mg/dl (74-100)
[2024-02-09 05:54] LABS: Amphetamine/Metha Screen,Urine Negative ng/ml (<1000); Benzodiazepines Screen,Urine Negative ng/ml (<200)
[2024-02-09 05:55] LABS: Barbiturates Screen,Urine Negative ng/ml (<200); Squamous Epithelial Cell,Urine Occasional #/hpf (0-5)
[2024-02-09 05:56] LABS: Cannabinoid Screen,Urine Negative ng/ml (<50); Cocaine Screen,Urine Negative ng/ml (<300)
[2024-02-09 05:57] LABS: Methadone Screen,Urine Negative ng/ml (<300)
[2024-02-09 05:58] LABS: Opiate Screen,Urine Negative ng/ml (<300); Phencyclidine Screen,Urine Negative ng/ml (<25)
--- NOTE | 2024-02-09 07:21 | EXP.ANES.CKL ---
[facility] Disclaimer: The information contained in this section may have been updated after the patient was seen, as this information can be updated by other users. Medical History Mitral regurgitation Gestational hypertension Maternal obesity affecting , antepartum PUPPP (pruritic urticarial papules and plaques of ) Anemia associated with acute blood loss Surgical History History of delivery Family History Other No significant family history Social History (Updated 02/09/24 @ 05:42 by Aisha Neumann RN) Smoking Status: Never smoker alcohol intake: never substance use type: denies use current occupational status: employed Travel in the last 8 weeks: None Have you lived/traveled outside US in past 30 days?: No Contact w/someone who lives/traveled outside US past 30 days?: No Exposure to someone with infectious disease in past 14 days?: No Do you have a fever (greater than 100.4 F or 38 C)?: No Have you tested positive for COVID-19: No Exposed to someone with COVID-19 in past 14 days?: No Do you have a sore throat?: No Do you have a cough?: No Do you have any weakness?: No Are you experiencing any nausea/vomitting?: No Do you have any diarrhea?: No Are you experiencing any unusual bleeding?: No Do you have any muscle aches/pain?: No Do you have any abdominal pain?: No Are you experiencing loss of taste or smell?: No [facility] Anesthesia Checklist Patient Identification Patient Identification: Arm Band and Family Structural Data Admitted From: Inpatient Planned Operative Procedure/s: C Section Consent for Planned Operative Procedure(s) Verified: Yes Verified Documents: Surgical Consent and History and Physical NPO Status Verified Time NPO: 00:00 Additional verifications Patient : Yes Anesthesia Reactions: No Hx Blood Transfusions: No Blood Transfusion Reaction: No Cephalosporin Allergy: No Previous Colonoscopy: No Airway Assessment Mallampati Score:: Class II C-Spine Mobility Assessed: Yes TMJ Mobility Assessed: Yes Dentition: Good Dentition Neurological Assessment Level of Consciousness: Awake, Alert, Appropriate and Follows Commands Hx Seizures: No Numbness or tingling in extremities: No Anesthesia Plan Anesthesia Risk discussed: Yes ASA Class: II Anesthesia Type: Spinal Preoperative Comments Pre-Operative Comments: MV leak. Hypertension. Asthma. Term .
--- NOTE | 2024-02-09 08:36 | HMH.PHAINT1 ---
Pharmacy Intervention Comments: MEDICATION RECONCILIATION COMPLETED ON PATIENT USING EXTERNAL FILL HISTORY FROM PHARMACY AND LIST FROM CARDIOLOGY OFFICE. -JOCELYNN WARNRE, PRAKASHD
--- NOTE | 2024-02-09 08:51 | EXP.OP.NOTE ---
Date of procedure: 02/09/24 Pre-op Diagnosis:: Previous section, term , desire for sterilization Post-op Diagnosis:: Previous section, term , desire for sterilization Procedure performed:: Repeat lower segment transverse section and bilateral ectomy Surgeon:: Arie Lawson MD Vending Service Technician(s):: Dr. Swan DEPUTY CLERK OF SUPERIOR COURT:: Maximino Graves Anesthesia: spinal Estimated blood loss (mL): 600 Clinical Note:: She is a 29-year-old 3 para 2 who has had 2 previous sections. She is admitted for repeat lower segment transverse section. She also expressed desire for sterilization and will have a bilateral salpingectomy. Baby is in the breech presentation. The risks and benefits of surgery as well as the irreversibility of bilateral salpingectomy were discussed with the patient prior to surgery. Operative findings:: She delivered a liveborn female child at 7:56 AM on the morning of February 09, 2024. The baby had Apgars of 8 at 1 minute and 9 at 5 minutes. It was in the riky breech presentation. Baby weighed 9 pounds 8 ounces. There was a loose nuchal cord. Operative note:: She was taken to the operating room where spinal anesthesia was found be adequate. She was prepped and draped in normal sterile fashion in the supine position with a leftward tilt. A Khan catheter was in the bladder. A Pfannenstiel skin incision was made with knife then carried through to the underlying layer of fascia with cautery. The fascia was opened in the midline with cautery and extended laterally using Silveira scissors. [place] clamps were applied to the superior aspect of the fascial incision which was tented up and the underlying rectus muscles dissected off using cautery. The Benedict clamps were then applied to the inferior aspect of the fascial incision which in a similar fashion was tented up and the underlying rectus muscles dissected off using cautery. The rectus muscles were then in the midline, the peritoneum identified, and entered sharply with Metzenbaum scissors. This incision was then extended superiorly and inferiorly with cautery. We had good visualization of the bladder inferiorly. We then inserted an Kevin retractor. The bladder peritoneum was then opened in the midline and extended laterally using Metzenbaum scissors. A bladder flap was created digitally. Transverse incision was made through the uterine muscle to the amnion. This incision was then extended laterally using fingers traction. The amnion was entered sharply with knife. There was clear amniotic fluid. The 's breech was then delivered atraumatically. This was followed by the shoulders and the 's head atraumatically. There was a loose nuchal cord which was easily reduced after delivery of the baby. The oropharynx and nasopharynx were bulb suctioned. The baby was vigorous so we allowed the cord to continue to pulsate for approximately 1 minute. The infant was then handed off to Dr. Calvo who assigned Apgars of 8 at 1 minute and 9 at 5 minutes. We then obtained cord blood . Using gentle traction on the cord and countertraction on the fundus I was able to easily deliver the placenta intact. It had a normal three-vessel cord. The uterus was then cleared of clots and debris . The uterine incision was then closed using running 0 Vicryl suture in a locked fashion. A second layer of the same suture was used to imbricate the first layer. The bladder peritoneum was then closed using running 2-0 Vicryl suture in a locked fashion. The gutters and cul-de-sac were then cleared of clots and debris . Once again hemostasis was assured. We then performed a bilateral salpingectomy. The distal end of the tube was grasped with my fingers and using the endoseal I cut through the mesosalpinx. I then cut across the tube close to the cornua. This was similarly performed on the opposite side. Tubes were sent to pathology. After once again assuring hemostasis the uterus was then returned to the abdominal cavity. The peritoneum was grasped with Trudi clamps and closed using running 2-0 Vicryl suture. The rectus muscles were then reapproximated using running 0 Vicryl suture. The fascia was closed using running #1 Vicryl suture. The subcutaneous tissues were then irrigated with warm water followed by closure Jennifer's fascia using running 2-0 Monocryl suture. The skin was closed with ana. I then cleaned the skin with Hibiclens. Sterile dressings were applied. She tolerated the procedure well and was taken to the recovery room in excellent condition. All sponges, instrument and needle counts were correct. Estimated blood loss was approximately 600 mL. Condition: stable Disposition: PACU Specimens:: Bilateral fallopian tubes Complications:: None
--- NOTE | 2024-02-09 09:01 | P.PNANES_ITS ---
[facility] Anesthesia Record Part I Anesthesia Record I Intake, IV Amount: 1,500 Hydration: Adequate Estimated blood loss (mL): 600 Urine output (mL): 300 Blood Products used (#): none Blood Pressure: 119/60 SaO2: 99 Pulse Rate: 93 Airway Patency: Patent Respiratory Rate: 18 Temperature: 97.6 F Patient is:: Awake and Stable Stable to PACU at:: 08:50
--- NOTE | 2024-02-09 09:02 | P.HP_ITS ---
OB - H&P: HPI Antepartum History of Present Illness Chief complaint: Term , previous section, desire for marlin rilization History of present illness: She is a 29-year-old 3 para 2 at 39 weeks gestational age. She has had 2 previous sections. She has been followed in this for a large for gestational age . The baby was in the breech presentation. She also has chronic hypertension and takes labetalol 100 mg twice daily. History of Present Criteria for establishing EDC:: LMP confirmed by 1st trimester US care: good care Ultrasounds: normal 1st trimester US, normal mid trimester US and other Abnormal ultrasound findings: Breech Tatian, large for gestational age Obstetrical complications: gestational hypertension, malpresentation and previous Medical complications: none Labs Blood type: O (+) positive Rubella: immune RPR/VDRL: nonreactive GBS status: negative HBsAG: negative PFSH PFSH Disclaimer: The information contained in this section may have been updated after the patient was seen, as this information can be updated by other users. Medical History Mitral regurgitation Gestational hypertension Maternal obesity affecting , antepartum PUPPP (pruritic urticarial papules and plaques of ) Anemia associated with acute blood loss Surgical History History of delivery Family History Other No significant family history Social History Smoking Status: Never smoker alcohol intake: never substance use type: denies use current occupational status: employed Travel in the last 8 weeks: None Have you lived/traveled outside US in past 30 days?: No Contact w/someone who lives/traveled outside US past 30 days?: No Exposure to someone with infectious disease in past 14 days?: No Do you have a fever (greater than 100.4 F or 38 C)?: No Have you tested positive for COVID-19: No Exposed to someone with COVID-19 in past 14 days?: No Do you have a sore throat?: No Do you have a cough?: No Do you have any weakness?: No Are you experiencing any nausea/vomitting?: No Do you have any diarrhea?: No Are you experiencing any unusual bleeding?: No Do you have any muscle aches/pain?: No Do you have any abdominal pain?: No Are you experiencing loss of taste or smell?: No Other Medical History Have you received the Flu Vaccine for this season: No Have you received the Pneumonia Vaccine: No Review of Systems Review of Systems Review of systems:: pertinent systems reviewed and negative unless documented below Meds Home Medications and Allergies Home Medications ?Medication ?Instructions ?Recorded ?Confirmed ?Type vits no.126-ferrous fum 1 tab PO DAILY #30 tabs 12/08/23 02/09/24 Rx 28 mg iron-folic acid 800 mcg tablet (Classic ) famotidine 20 mg tablet (Pepcid) 20 mg PO DAILY #30 tabs 01/12/24 02/09/24 Rx labetalol 100 mg tablet 100 mg PO BID #60 tabs 01/12/24 02/09/24 Rx triamcinolone acetonide 0.1 % 1 applic topical BID #30 grams 01/20/24 02/09/24 Rx topical cream cetirizine 10 mg tablet 10 mg PO DAILYP PRN Allergy 02/09/24 02/09/24 History Symptoms New Prescriptions to Start Prescriptions: Allergies Allergy/AdvReac Type Severity Reaction Status Date / Time No Known Allergies Allergy Verified 02/09/24 05:36 OB - H&P: Exam Physical Exam Vital signs: Temp Pulse Resp BP Pulse Ox O2 Del Method 98.3 F 84 21 117/70 98 Room Air 02/09/24 05:37 02/09/24 05:37 02/09/24 05:37 02/09/24 05:37 02/09/24 05:37 02/09/24 05:37 Constitutional no acute distress Routine HEENT Exam Head: Present normocephalic Eye: Present PERRL ENT: Present mucous membranes moist Routine Neck Exam Present supple Routine Chest/Breast/Axilla Exam Chest wall: Absent tenderness Routine Respiratory Exam Present normal respiratory effort and symmetric chest movement; Absent accessory muscle use Routine Cardiovascular Exam Present RRR Routine Abdominal Exam Present soft; Absent tenderness Routine Rectal Exam Patient deferred: visual exam Routine Exam Patient deferred: external exam Routine Extremities Exam Present full ROM; Absent cyanosis Routine Back/Spine/Pelvis Exam Back/Spine: Present full ROM Routine Skin Exam Present intact Routine Neurological Exam Present alert and oriented X3 Routine Psychiatric Exam Present normal affect OB - Results Labs Labs: Short CBC 02/09/24 Range/Units 05:25 WBC 6.8 (4.8-10.8) K/mm3 Hgb 9.6 L (12.2-16.2) g/dL Hct 30.2 L (37.0-47.0) % Plt Count 197 (142-424) K/mm3 BMP 02/09/24 05:25 Sodium 133 L Potassium 3.8 Chloride 110 H Carbon Dioxide 20 L BUN 8 Creatinine 0.80 Glucose 88 Calcium 8.9 Urine 02/09/24 Range/Units 05:25 Urine Color Yellow (Yellow) Urine Appearance Clear (Clear) Urine pH 6.0 (5.0-8.5) Ur Specific [place] 1.020 (1.005-1.030) Urine Protein Negative (Negative) Urine Glucose (UA) Negative (Negative) OB - A/P Antepartum (1) Sterilization consult: Status: Acute (2) History of delivery: Status: Acute (3) Gestational hypertension: Status: Acute (4) Maternal obesity affecting , antepartum: Status: Acute Additional Plan Planning to breastfeed?: No Plan: other Additional Information:: She is admitted for repeat lower segment transverse section and bilateral salpingectomy.
[2024-02-09] MEDS: OXYTOCIN/RINGERS LACTATE 30 UNITS/500 ML BAG 40 UNITS IV (10:01)
[2024-02-09] MEDS: LACTATED RINGERS 1000ML 1,000 ML 125 ML IV (10:01)
[2024-02-09] MEDS: ACETAMINOPHEN 500MG TAB 1000 MG PO ×2 (10:27→15:56)
[2024-02-09] MEDS: OXYCODONE 5MG IMMEDIATE RELEASE TABLET 10 MG PO ×3 (10:27→20:00)
[2024-02-09 10:34] LABS: Microscopic, Urine URINE MICROSCOPIC (MICROSCOPIC)
[2024-02-09 10:38] LABS: Appearance,Urine CLEAR (Clear); Bilirubin,Urine Negative (Negative); Blood, Urine Negative (Negative); Color,Urine YELLOW (Yellow); Glucose,Urine (UA) Negative (Negative); Ketones,Urine Negative (Negative); Leukocyte Esterase,Urine Negative (Negative); Nitrate,Urine Negative (Negative); Protein,Urine Negative (Negative); Specific Gravity, Urine <= 1.005 (1.005-1.030); Urobilinogen,Urine 0.2 EU/dl (0.2)
--- NOTE | 2024-02-09 11:26 | P.PNANES_ITS ---
[facility] Anesthesia Record Part II Anesthesia Record Part II Discharge Time: 09:20 Destination: Surgical Day Care (OP Surgery) PACU nurse assessment reviewed?: Yes Patient Condition:: Good Anesthesia Complications:: None Swallowing reflex intact?: Yes Airway Patency: Patent Cyanosis?: No Blood Pressure: 119/65 SaO2: 98 Respiratory Rate: 18 Pulse Rate: 63 Temperature: 98.6 F Mental Status: Alert & Oriented Pain level:: 0 Nausea and/or vomitting:: None Intake, IV Amount: 0 Hydration: Adequate
[2024-02-09 13:36] LABS: RPR W/RFX Titers Nonreactive (Nonreactive)
[2024-02-09] MEDS: LANOLIN CREAM 40GM TP (15:00)
[2024-02-09] MEDS: CEFAZOLIN SODIUM 2 GM in 0.9 % SODIUM CHLORIDE 100 ML IV (15:57)
[2024-02-09] MEDS: IBUPROFEN 400 MG TABLET 800 MG PO (19:59)
[2024-02-09] MEDS: PRENATAL MULTIVITAMIN W/IRON 1 EACH PO (20:00)
[2024-02-09] MEDS: SIMETHICONE 80MG CHEWABLE TABLET 160 MG PO (20:00)
[2024-02-09] MEDS: SENNA 8.6MG TABLET 8.6 MG PO (20:00)
[2024-02-10] MEDS: ACETAMINOPHEN 500MG TAB 1000 MG PO ×4 (00:21→18:00)
[2024-02-10] MEDS: CEFAZOLIN SODIUM 2 GM in 0.9 % SODIUM CHLORIDE 100 ML IV (00:21)
[2024-02-10] MEDS: IBUPROFEN 400 MG TABLET 800 MG PO (07:05)
[2024-02-10] MEDS: OXYCODONE 5MG IMMEDIATE RELEASE TABLET 10 MG PO ×3 (07:06→21:04)
[2024-02-10 07:41] LABS: Hematocrit 29.2 % (37.0-47.0)
--- NOTE | 2024-02-10 09:31 | EXP.ACUTE.PN ---
Subjective *Date: 02/10/24 *Time: 09:31 Interval history: She is doing very well. She continues to have pain. She has not been taking pain medication and went all night without any pain medication. She seems to be doing a little better now. She would like to stay until tomorrow at least. Medical Exam Vital signs and Labs for Last 24 Hours: Vital Signs Resp 02/09/24 11:27 18 Intake and Output 02/09/24 02/10/24 02/10/24 19:59 03:59 11:59 Output Total 2400 / 2400 Balance -2400 / -2400 Output: Output, Urine Amount (Catheter) 2400 / 2400 Khan 2400 / 2400 Laboratory Results - last 24 hr 02/09/24 07:41: Urine Color Yellow, Urine Appearance Clear, Urine pH 6.0, Ur Specific [place] <= 1.005, Urine Protein Negative, Urine Glucose (UA) Negative, Urine Ketones Negative, Urine Blood Negative, Urine Nitrate Negative, Urine Bilirubin Negative, Urine Urobilinogen 0.2, Ur Leukocyte Esterase Negative, Urine RBC None, Urine WBC None, Ur Squamous Epith Cells None, Urine Bacteria None 02/10/24 06:45: Hgb 9.0 L, Hct 29.2 L I & O for Labs for Last 24 Hours: Intake & Output 02/07/24 02/08/24 02/09/24 02/10/24 11:59 11:59 11:59 11:59 Intake Total 1500 / 1500 Output Total 550 / 550 2400 / 2400 Balance 950 / 950 -2400 / -2400 Weight 286 lb Head: Present atraumatic and normocephalic Neck: Present normal inspection Respiratory: Present normal respiratory effort; Absent accessory muscle use Assessment and Plan *Assessment and plan (1) Sterilization consult: Status: Acute Category: Medical Code(s): Z30.09 - Encounter for other general counseling and advice on contraception (2) History of delivery: Status: Acute Category: Surgical Code(s): Z98.891 - History of uterine scar from previous surgery (3) Gestational hypertension: Status: Acute Qualifiers: Trimester: third trimester Qualified Code(s): O13.3 - Gestational [-induced] hypertension without significant proteinuria, third trimester Category: Medical Code(s): O13.9 - Gestational [-induced] hypertension without significant proteinuria, unspecified trimester (4) Single delivery by section: Status: Acute Category: Medical Code(s): O82 - Encounter for delivery without indication (5) Maternal obesity affecting , antepartum: Status: Acute Qualifiers: Obesity type affecting : unspecified obesity Qualified Code(s): O99.210 - Obesity complicating , unspecified trimester Category: Medical Code(s): O99.210 - Obesity complicating , unspecified trimester Plan She is doing a little better this morning but still continues to have pain. We will plan to keep her for another day. We will likely send her home tomorrow. We will start some Toradol every 6 hours.
[2024-02-10] MEDS: KETOROLAC 10MG TABLET 10 MG PO ×2 (12:47→17:59)
[2024-02-10 16:00] VITALS: BP 117/69; PULSE 82; RESP 17; TEMP 36.7; O2SAT 98
[2024-02-10] MEDS: PRENATAL MULTIVITAMIN W/IRON 1 EACH PO (16:48)
[2024-02-10] MEDS: SENNA 8.6MG TABLET 8.6 MG PO (16:48)
[2024-02-10 20:38] VITALS: BP 120/68; PULSE 76; RESP 19; TEMP 36.6; O2SAT 98
[2024-02-10] MEDS: SIMETHICONE 80MG CHEWABLE TABLET 160 MG PO (23:26)
[2024-02-11] MEDS: ACETAMINOPHEN 500MG TAB 1000 MG PO ×2 (00:32→06:41)
[2024-02-11] MEDS: KETOROLAC 10MG TABLET 10 MG PO ×2 (00:33→06:42)
[2024-02-11 03:55] VITALS: BP 138/87; PULSE 96; RESP 16; TEMP 36.7; O2SAT 97
--- NOTE | 2024-02-11 09:18 | P.DS_ITS ---
General Admission date:: 02/09/24 Discharge date: 02/11/24 HPI HPI HPI: She is a 29-year-old 3 para 2 at 39 weeks gestational age. She has had 2 previous sections. She has been followed in this for a large for gestational age infant. The baby was in the breech presentation. She also has chronic hypertension and takes labetalol 100 mg twice daily. Hospital Course Hospital Course Hospital Course: On February 09, 2024 she underwent a repeat lower segment transverse section. She delivered a liveborn female child in the breech presentation. The baby weighed 9 pounds 8 ounces and had Apgars of 8 at 1 minute and 9 at 5 minutes. She also had a bilateral salpingectomy. She has done well postoperatively and has remained afebrile throughout hospitalization. She is eating and drinking and ambulating. She is breast- feeding and pumping. She is supplementing with a bottle. She has O+ blood, she is rubella immune and was group B streptococcus negative. She is discharged home to follow-up with me in approximately 2 weeks time. She was given the usual instructions with respect to limiting her activity, driving and sexual activity. She was given instructions with respect to wound care. She was given a prescription for Percocet 5/325 #12, she was given a prescr iption for Toradol 10 mg #20. Her condition on discharge is stable and improved. Exam Data for Last 24 hours Vital signs and Labs for Last 24 Hours: Temp Pulse Resp BP Pulse Ox O2 Del Method 98.0 F 96 H 16 138/87 97 Room Air 02/11/24 03:55 02/11/24 03:55 02/11/24 03:55 02/11/24 03:55 02/11/24 03:55 02/11/24 03:55 I & O for Last 24 hours: Intake & Output 02/08/24 02/09/24 02/10/24 02/11/24 11:59 11:59 11:59 11:59 Intake Total 1500 / 1500 Output Total 550 / 550 2400 / 2400 Balance 950 / 950 -2400 / -2400 Weight 286 lb Constitutional Constitutional: no acute distress *Routine HEENT Exam Head: Present normocephalic *Routine Neck Exam Neck: Present full ROM *Routine Respiratory Exam Respiratory: Present normal respiratory effort; Absent accessory muscle use DS: Diagnosis Discharge Diagnosis (1) Sterilization consult: Status: Acute Code(s): Z30.09 - Encounter for other general counseling and advice on contraception (2) History of delivery: Status: Acute Code(s): Z98.891 - History of uterine scar from previous surgery (3) Gestational hypertension: Status: Acute Code(s): O13.9 - Gestational [-induced] hypertension without significant proteinuria, unspecified trimester Qualifiers: Trimester: third trimester Qualified Code(s): O13.3 - Gestational [-induced] hypertension without significant proteinuria, third trimester (4) Single delivery by section: Status: Acute Code(s): O82 - Encounter for delivery without indication (5) Maternal obesity affecting , antepartum: Status: Acute Code(s): O99.210 - Obesity complicating , unspecified trimester Qualifiers: Obesity type affecting : unspecified obesity Qualified Code(s): O99.210 - Obesity complicating , unspecified trimester Meds Home Medications and Allergies Home Medications ?Medication ?Instructions ?Recorded ?Confirmed ?Type vits no.126-ferrous fum 1 tab PO DAILY #30 tabs 12/08/23 02/09/24 Rx 28 mg iron-folic acid 800 mcg tablet (Classic ) famotidine 20 mg tablet (Pepcid) 20 mg PO DAILY #30 tabs 01/12/24 02/09/24 Rx labetalol 100 mg tablet 100 mg PO BID #60 tabs 01/12/24 02/09/24 Rx triamcinolone acetonide 0.1 % 1 applic topical BID #30 grams 01/20/24 02/09/24 Rx topical cream cetirizine 10 mg tablet 10 mg PO DAILYP PRN Allergy 02/09/24 02/09/24 History Symptoms ketorolac 10 mg tablet 10 mg PO Q6H #20 tabs 02/11/24 Rx oxycodone-acetaminophen 5 mg-325 1 tab PO Q6H PRN pain #12 tabs 02/11/24 Rx mg tablet New Prescriptions to Start Prescriptions: ketorolac Arie Lawson oxycodone-acetaminophen Arie Lawson Allergies Allergy/AdvReac Type Severity Reaction Status Date / Time No Known Allergies Allergy Verified 02/09/24 05:36 Discharge Plan Disposition Patient Disposition: Home, Self-Care Discharge Order Discharge Orders: Discharge Order (Routine); Ordered 02/11/24 Ordered By: Arie Lawson Follow up Plan Follow up with: Arie Lawson MD [Staff Physician] - Enter time for follow up Prescriptions/Medication Reconciliation: New ketorolac 10 mg Tablet 10 mg PO Q6H Qty: 20 0RF oxycodone-acetaminophen 5-325 mg tablet 1 tab PO Q6H PRN (Reason: pain) Qty: 12 0RF Continued Classic 28 mg iron- 800 mcg tablet 1 tab PO DAILY Qty: 30 11RF famotidine [Pepcid] 20 mg tablet 20 mg PO DAILY Qty: 30 2RF labetalol 100 mg tablet 100 mg PO BID Qty: 60 2RF triamcinolone acetonide 0.1 % cream 1 applic topical BID Qty: 30 0RF Rx Instructions: Apply to the affected area twice daily. cetirizine 10 mg tablet 10 mg PO DAILYP PRN (Reason: Allergy Symptoms) Problem Reconciliation Problems Reviewed?: Yes Patient Discharge Instructions ACTIVITY: No heavy lifting DIET: continue same diet Additional Instructions: *Nothing in the Vagina for 6 weeks* *No heavy lifting* *No strenuous activity* Patient Instructions: Depression, Hemorrhage, DI for , DI for Pre-eclampsia, [facility] Post Discharge Instructions Print Language: Tu[place] Providers Primary Care Provider: Provider,Referral Admit Provider: Arie Lawson Attending Provider: Arie Lawson
== END 2024-02-11 11:15 | disposition home or self-care (01) | DRG 784 ==
PROVIDERS: Admitting Provider Nurse Practitioner Obstetrics & Gynecology; Visit Provider Nurse Practitioner Obstetrics & Gynecology
PROC: 10D00Z1 Extraction of Products of Conception, Low, Open Approach (ICD-10-PCS; CPT 59514; principal; 2024-02-09 07:30)
DX: O34.211 Maternal care for low transverse scar from previous cesarean delivery (principal); O10.92 Unspecified pre-existing hypertension complicating childbirth; Z30.2 Encounter for sterilization; Z3A.39 39 weeks gestation of pregnancy; Z37.0 Single live birth; O99.214 Obesity complicating childbirth; E66.9 Obesity, unspecified; O32.1XX0 Maternal care for breech presentation, not applicable or unspecified
CPT/HCPCS: 59620; 36415; 59025; 80048; 80307; 81001; 85014; 85018; 85025; 86592; 86850; 94761; C9290; G0283; J1100; J2405; J3010; J7120